=== PATIENT | female | born 1960 | race Caucasian/White ===

== ENCOUNTER 2018-08-10 05:56 | Inpatient (IN) | payer OTHER, SELFPAY ==
[2018-07-30 13:58] VITALS: BMI 29.8
[2018-08-10] VITALS (19 sets, daily range): BP systolic 93–121; BP diastolic 58–78; PULSE 68–93; RESP 10–24; TEMP 35.6–36.9; O2SAT 90–98; BMI 29.9
[2018-08-10] MEDS: LACTATED RINGERS 1,000 ML 42 ML IV ×2 (07:00→08:41)
--- NOTE | 2018-08-10 07:24 | PM.PREOP ---
Pre-operative Note Interval Note History & Physical reviewed/Exam performed by Physician: Yes Changes to H&P: No
--- NOTE | 2018-08-10 07:25 | PM.OP.1 ---
Operative Date/Time/Diagnoses Date of procedure: 08/10/18 Time of procedure: 11:03 Pre-op diagnosis: lumbar stenosis with radiculopathy lumbar spondylolisthesis Post-op diagnosis: same Procedure & Clinicians Procedure: L3-4 laminectomy L4-5 laminectomy with removal of facet cyst L4-5 TLIF (post/post innerbody fusion) with cage L4 and L5 screws Iliac crest bone graft aspirate Use of microscope Placement of an epidural catheter Same procedure as scheduled: Yes Indications: [age] year old female with intractable pain from stenosis. They had failed conservative management and requested operative intervention. Risks and benefits of surgery were discussed and appropriate consents were obtained. Surgeon: Hosea Duque Ammonium Nitrate Neutralizer: Bebe Bhatt Anesthesia Type: General Operative Notes Findings: None Closure Type: primary Specimen(s): none sent Prosthetic devices, grafts, tissues, transplants, or devices: NuVasive MAS Reline screws Globus Rise cage Applied: catheter Estimated Blood Loss (mL): 20 Blood products transfused: none Procedure in detail: The patient was brought to the operating room and intubated on the table. A time-out was performed. They were then rolled over to the well-padded Cortes table in the prone position. Preoperative antibiotics were given. The back was prepped and draped in the standard sterile fashion. Using fluoroscopy, a 4 cm longitudinal incision was made to the right of the midline. We used Bovie to come down to and split the lumbodorsal fascia. Using fluoroscopy and monitoring, we then percutaneously placed Jamshidi needles down the pedicles of L4 and L5 on the right side. These were changed out to guidewires and then we tapped and then placed the NuVasive MAS Reline screw shanks. We then opened up the retractors and used Bovie to clear up the posterolateral gutter as well as medially along the lamina to the spinous processes. A bur was used to decorticate the transverse processes. We brought in the microscope. Using a combination of bur and Kerrison rongeurs, a laminectomy was performed from the right side. We cleared over past the midline and carefully depressed the dura until we were able to decompress the opposite side. There was at a very large facet cyst extensively adhered to the dura at this level. We had to do extensive dissection and clearing this out until everything was decompressed. We cleared out the neural foramen. This completed the laminectomy at L4-5. This was separate and distinct from the TLIF approach as we were decompressing the canal and the nerves as well as having to remove the large facet cyst, not just a small approach window. We then began the TLIF prep. A complete facetectomy was performed on this side at L4-5. We carefully cleaned up the remainder of the foramen until we could easily retract the exiting root as well as clearing medially below the dura and expose the disc space. The disc was prepped with bipolar and then an annulotomy was performed. We performed a diskectomy using a combination of paddles, owen, pituitaries, and curettes. We distracted the disc using a paddle and locked the retractor in an open position. We then filled the disc space with Osteocell bone graft. We then placed the globus Rise cage under fluoroscopy and then filled this in with more bone graft. The distraction on the retractor was released to compress down. This completed the posterior interbody fusion portion of the TLIF at L4-5. We then rotated the retractor blade on the L4 screw and opened the retractor cephalad at this. We then dissected expose the L3 lamina. A laminectomy was performed from the right-hand side at L3-4 using a bur and Kerrison rongeur is. We reached across the midline with our Kerrison swell carefully depressing the dura to decompress the central canal. In the and the canal and foramen were open. We then placed the screw heads, chi, and locked down the set screws. The wound was copiously irrigated. A small stab incision was made over the PSIS. We used a Jamshidi needle to aspirate several mL of bone marrow from the pelvis. This was mixed with the remaining Osteocell and combined with all of the locally harvested bone graft and placed in the posterolateral gutter for the posterior fusion of the TLIF at L4-5. An epidural catheter was then placed in the spinal canal by carefully depressing the dura and advancing it 6 cm cephalad under the remaining lamina without resistance. The muscle fascia was closed. The catheter was then injected with a solution containing 4 mL of 0.5% Marcaine, 1 mg Stadol, 4 mg Duramorph, and 100 mcg of fentanyl. This was injected without resistance and the catheter was pulled. We then went to the opposite side. Again using fluoroscopy, a 3 cm incision was made and Bovie was used to come down to split the fascia. Using neural monitoring and fluoroscopy, Jamshidi needles were advanced down the pedicles of L4 and L5 on the left side. These were switched over guidewires, tapped, and screws placed. We then placed a chi and locked the set screws on this side. The wound was irrigated. The fascia was closed. Vancomycin powder was placed in the wounds. The superficial and skin were closed. A sterile dressing was placed. The patient was then rolled over extubated and brought to recovery room without complications. Complications: none Condition: stable Disposition: PACU Plan for aftercare: Inpatient. Up with physical therapy.
[2018-08-10] MEDS: CLINDAMYCIN 900 MG/50 ML PIGGYBACK 50 MG IV ×3 (07:45→23:41)
--- NOTE | 2018-08-10 08:25 | SUR.OPER ---
Prone on spine table, head in foam head support, padded chest and pelvic supports, gel pad at knees, lower legs supported by pillows; nipples, genitalia and toes free of pressure, arms secured on foam padded arm boards at <90 degrees abduction. Tape over blanket at thigh secured to table.
[2018-08-10] MEDS: THROMBIN (RECOMBINANT) 5,000 UNIT VIAL 5000 UNIT TOP (08:39)
[2018-08-10] MEDS: VANCOMYCIN 1,000 MG VIAL 1000 MG TOP (08:39)
[2018-08-10] MEDS: SODIUM CHLORIDE 0.9% 1,000 ML, GENTAMICIN 80 MG IRR ×2 (08:40)
--- NOTE | 2018-08-10 11:20 | DI.RAD.S_ITS ---
PROCEDURE: XR LUMBAR SPINE 2-3V INDICATIONS: L4-5 TLIF FINDINGS: 2 limited intraoperative fluoroscopically stored images of the lower lumbar spine were obtained for intraoperative hardware localization purposes. These images are not meant for diagnostic purposes. Intraoperative findings related to a lower lumbar discectomy and fusion procedure are present. IMPRESSION: Intraoperative images obtained during the patient's lower lumbar discectomy and fusion procedure. Dictated by: Dieter Herrera M.D. on 08/10/2018 at 10:49 Approved by: Dieter Herrera M.D. on 08/10/2018 at 10:50
--- NOTE | 2018-08-10 11:41 | PC.NURSE ---
Day shift: Pt not on AC unit at this time.
[2018-08-10] MEDS: HYDROMORPHONE 2 MG INJ 0.5 MG IV (11:45)
--- NOTE | 2018-08-10 12:35 | SUR.PHASEI ---
1227 To room 214. bed remains elevated w/staff agreement to lower it after caring for patient. VSS. Tolerating ice chips well. Resp unlabored, skin warm and dry. Pain 08/22, staff informed that she would like Rx. SCDs on. Clothing bag and cPAP to room and put on patient w/O2 @3LNP. Spouse present. Back dressing remains CDI w/patient positioned on her right side for comfort.
--- NOTE | 2018-08-10 12:37 | SUR.PHASEI ---
patient was moving freely w/sufficient strength to turn self.
[2018-08-10] MEDS: LACTATED RINGERS 1,000 ML 125 ML IV ×2 (12:51→22:14)
[2018-08-10] MEDS: hydrOXYzine pamoate 25 MG CAPSULE PO ×3 (12:52→23:48)
[2018-08-10] MEDS: HYDROCODONE/ACET 5/325 TABLET 2 TAB PO ×3 (12:52→23:48)
[2018-08-10] MEDS: CELECOXIB 200 MG CAPSULE 400 MG PO (12:57)
--- NOTE | 2018-08-10 13:07 | PC.NURSE ---
Day shift: Arrived on unit at approx 1245. Oriented to room and call light. Back surgery dressing is CDI. Call light in reach. Spouse at bedside for support. 4L O2 attached to CPAP. CMS ok. VS WNL. Stated pain 12/22. Medicated per AUG. Will continue to monitor and assess pain. Pt agrees to not get OOB w/o help.
--- NOTE | 2018-08-10 13:33 | PT.IPTN ---
Current Diagnoses Spondylolisthesis, lumbar region (08/10/18) Spinal stenosis, lumbar region with neurogenic claudication (08/10/18) Surgery Performed Operation Date: 08/10/18 07:45 Actual Procedures p L3-4,L4-5 Laminectomy & Instru fusion w/bone graft - Hosea Duque MD Physical Therapy Treatment Note Notes Per RN pt in a lot of pain, just got a ton of pain medication and needs to sleep. Will check back later.
--- NOTE | 2018-08-10 16:23 | PT.IIE ---
Current Diagnoses Spondylolisthesis, lumbar region (08/10/18) Spinal stenosis, lumbar region with neurogenic claudication (08/10/18) Surgery Performed Operation Date: 08/10/18 07:45 Actual Procedures p L3-4,L4-5 Laminectomy & Instru fusion w/bone graft - Hosea Duque MD Surgical History (Last Updated 07/30/18 @ 14:12 by Elisha Sandoval, RN) History of section (Acute ~1987) History of colonoscopy (Acute) Hx of tubal ligation (Acute ~1987) Medical History (Last Updated 07/30/18 @ 14:46 by Elisha Sandoval RN) Anemia (Acute) Anxiety (Acute) Arthritis (Acute) Current every day smoker (Acute) Depression (Acute) Glaucoma (Acute) Heartburn (Acute) Increased pressure in the eye (Acute) Migraines (Acute) Numbness and tingling (Acute) JULIANNE on CPAP (Acute) Precancerous lesion (Acute) Sciatica (Acute) Seasonal allergies (Acute) Spinal stenosis (Acute) Physical Therapy Inpatient Evaluation/Re-Eval M1 PT/OT-IP Prior Functional Status Start: 08/10/18 13:32 Freq: NEEDED Status: Active Protocol: Document 08/10/18 16:23 RS (Rec: 08/10/18 16:37 RS [id number]) Medical Review Prior Functional Status Medical History Reviewed Yes Diet/Fluid Consistency Regular Communication no known deficits Mobility and Gait ind without AD but very painful Activities of Daily Living and IADL's denies needing assist Prior Functional Level (Other details) has had a few falls related to legs giving out Social History Household Members spouse family Living Arrangements House Number of Floors (Floors) One Floor Number of Stairs To Enter/Railing? 2STE no rail Home Equipment Front Wheel Walker Four Wheel Walker Straight Cane Additional Social History Comment spouse can provide assist at home M2 PT-IP Current Condition Start: 08/10/18 13:32 Freq: NEEDED Status: Active Protocol: Document 08/10/18 16:23 RS (Rec: 08/10/18 16:37 RS [id number]) Physical Therapy Current Condition Current Condition Evaluation Date 08/10/18 Treatment Diagnosis L3-4 lami, L4-5 TLIF Onset Date 08/10/18 Precautions Lumbar Precautions Log Roll No Twisting Limit Bending Lifting Restriction of 10 lbs Gait Belt above Incisional Area M3 PT-IP Subjective Start: 08/10/18 13:32 Freq: NEEDED Status: Active Protocol: Document 08/10/18 16:23 RS (Rec: 08/10/18 16:37 RS [id number]) Subjective Physical Therapy Visit Type Type Initial Evaluation Visit Start Time 15:30 Visit Stop Time 16:23 Total Visit Minutes 53 Physical Therapy Visit Comments Patient Comments Pt reports no pain in BLE at all which is 100% improved since before surgery, she does feel weaker though in BLE than before surgery. Patient Goals go home tomorrow Therapy Pain Assessment Pain When Pain Assessed At Rest Pain Present Pain Present Pain Reported Location Lower Back Intensity 7 Scale Used Numeric (1 - 10) M4 PT-IP Mobility and Gait Start: 08/10/18 13:32 Freq: NEEDED Status: Active Protocol: Document 08/10/18 16:23 RS (Rec: 08/10/18 16:37 RS [id number]) PT-Bed Mobility Assessment Rolling Type of Rolling Log Rolling Roll to Right Level of Assist Standby Assistance 1 Person Assistance Supine to Sit Supine to Sit Contact Guard Assistance 1 Person Assistance Sit to Supine Sit to Supine Contact Guard Assistance 1 Person Assistance Scooting Scooting to Edge of Bed Standby Assistance PT-Transfer Assessment Sit to and From Stand Sit to and from Stand Contact Guard Assistance 1 Person Assistance Equipment Transfer Assistive Device Gait Belt Front Wheeled Walker Transfers Transfer Destination Bed Transfer Technique walked and turned to sit Transfer Ability Level of Assist Contact Guard Assistance 1 Person Assistance Comments Mobility Comments Pt able to perform log roll without additional cues, did get a little dizzy once sitting but no orthostatic drop. No increase in pain. Slow with scooting to EOB and then to stand up but steady. Pt reports feeling off balance but no LOB observed when using FWW. Able to control descent to sit back down safely. Gait Assessment Gait Gait Assistance Required: Contact Guard Assist Distance (Feet) 15 Assistive Devices Assistive Device Gait Belt Front Wheeled Walker Gait Deviations General Gait Pattern Antalgic Decreased Stride Length Factors Limiting Gait Function Factors Limiting Gait Function Decreased Strength Pain Comments Gait Comments Pt slow with walking but steady with only slight reduction in step length. Defitintely needs a walk right now though for stability and pain management. Stair Climbing Assessment Comments Stair Climbing Comments not tested PT-Balance Assessment Sitting Balance and Reactions Static Sitting Balance Ability Normal Dynamic Sitting Balance Ability Good Standing Balance and Reactions Static Standing Balance Ability Good Dynamic Standing Balance Ability Good Device Used FWW M5 PT-IP Objective Assessments Start: 08/10/18 13:32 Freq: NEEDED Status: Active Protocol: Document 08/10/18 16:23 RS (Rec: 08/10/18 16:37 [id number]) Orientation Orientation/Cognition Level of Alertness Alert Orientation Name Age Birthday Month Date Year Day of Week Place Situation Language Function Ability No Deficits Noted Safety Awareness Understands Safety Issues Memory Description No Deficits Noted Gross Range of Motion Upper Extremity ROM Assessment Within Functional Limits Lower Extremity ROM Assessment Within Functional Limits Strength Upper Extremity Strength Assessment Within Functional Limits Lower Extremity Strength Assessment Bilaterally Impaired Comments Strength Comments grossly 4/5 but nothing focal Coordination Assessment Gross Coordination Gross Coordination WNL M6 PT-IP Treatment Start: 08/10/18 13:32 Freq: NEEDED Status: Active Protocol: Document 08/10/18 16:23 RS (Rec: 08/10/18 16:37 [id number]) Physical Therapy Treatment Education Education Provided Precautions Post-Op Packet Safety M7 PT-IP Assessment and Plan Start: 08/10/18 13:32 Freq: NEEDED Status: Active Protocol: Document 08/10/18 16:23 RS (Rec: 08/10/18 16:37 [id number]) PT Summary Assessment and Plan Potential Rehabilitation Potential Excellent Status of Condition at Evaluation Evolving Summary Impairments Pain Strength Balance Transfers Gait Activity Tolerance Assessment Summary Pt is POD#0 L3-4 lami w/ L4-5 TLIF. Pt presents with low back pain and gross weakness which is requiring the patient to have up to CGA with FWW for mobility at this time. Pt also limited by moderate wooziness in sitting and standing which prevented patient from walking further this session. However, pt demonstrates compliance with spinal precautions thus far. It is anticipated that pt will be safe to discharge directly home tomorrow (or when medically ready) with assist from . Pt will need 1-2 more sessions (with present) for family training, stair trial, and gait progression prior to discharge . Pt in agreement with this plan. Goals Bed Mobility Goal Standby Assistance Transfer Goal Standby Assistance Gait Goal Standby Assistance Gait Distance 150 Other Goals no AD up/down 2 steps with min A and no rail Days to Meet Goals 2 Frequency of Treatment Frequency Of Treatment Twice a Day Treatment Plan Physical Therapy Treatment Plan Bed Mobility Training Transfer Training Gait Training Therapeutic Exercise Balance Retraining Post Op Education Discharge Planning Hot or Cold Pack Neuromuscular Re-ed Coordination Retraining Manual Therapy Other Recommendations and Next Treatment family training with , Focus stairs, trial gait without AD Recommendations To Nursing Amount of Assist Needed 1 Person Assist Discharge Recommendations PT Discharge Recommendations Home with Assistance Equipment Needed for Home Before might need FWW but can borrow Discharge one
[2018-08-10] MEDS: BIMATOPROST 0.01% OPHTH 2.5 ML 1 DROPS EYE-BOTH (22:07)
[2018-08-10] MEDS: DOCUSATE 100 MG CAPSULE PO (22:11)
[2018-08-10] MEDS: CELECOXIB 200 MG CAPSULE PO (22:11)
[2018-08-10] MEDS: GABAPENTIN 300 MG CAPSULE PO (22:12)
[2018-08-10] MEDS: SENNOSIDES 8.6 MG TABLET 17.2 MG PO (22:12)
[2018-08-11 05:42] VITALS: BP 105/77; PULSE 86; RESP 18; TEMP 36.6; O2SAT 92
[2018-08-11] MEDS: hydrOXYzine pamoate 25 MG CAPSULE PO ×2 (05:56→11:48)
[2018-08-11] MEDS: HYDROCODONE/ACET 5/325 TABLET 2 TAB PO (05:56)
[2018-08-11 06:03] LABS: Hematocrit 29.9 % (36-46); Hemoglobin 10.1 g/dL (12.0-16.0)
--- NOTE | 2018-08-11 07:36 | PM.PNPO.1 ---
Subjective Date Patient Seen: 08/11/18 Time Patient Seen: 07:36 Interval history: She is doing great. She has been up with physical therapy and moving well. Absolutely no leg symptoms. Minimal discomfort in the back. Exam Vital Signs (past 8 hours): - 08/10/18 23:50 08/11/18 05:42 Temperature 98.2 F 97.9 F Pulse Rate 86 86 Respiratory Rate 18 18 Blood Pressure 93/63 105/77 Pulse Oximetry 93 92 Oxygen Delivery Method CPAP Oxygen Flow Rate 0 Const Orientation: alert and oriented x3 Back/Spine/Pelvis Other: CDI. 5/5 motor both lower extremities Objective Labs Result Diagrams: 08/11/18 05:49 Labs: Laboratory Results - last 24 hr 08/11/18 05:49 Hgb 10.1 L Hct 29.9 L Assessment & Plan Post-op Postoperative Procedures Operation Date: 08/10/18 07:45 Actual Procedures Side Surgeon p L3-4,L4-5 Laminectomy & Instru fusion w/bone graft Hosea Duque MD she is doing great. Removed the Ward catheter today. Mobilize with physical therapy. If she is doing well and passes physical therapy she can be discharged home today. Quality VTE Deep Vein Thrombosis/Pulmonary Embolism Present on Admission: No
[2018-08-11] MEDS: DOCUSATE 100 MG CAPSULE PO (07:55)
[2018-08-11] MEDS: CELECOXIB 200 MG CAPSULE PO (07:55)
[2018-08-11 08:02] VITALS: BP 101/57; PULSE 78; RESP 16; TEMP 36.8; O2SAT 94
--- NOTE | 2018-08-11 10:36 | PT.IPTN ---
Current Diagnoses Spondylolisthesis, lumbar region (08/10/18) Spinal stenosis, lumbar region with neurogenic claudication (08/10/18) Surgery Performed Operation Date: 08/10/18 07:45 Actual Procedures p L3-4,L4-5 Laminectomy & Instru fusion w/bone graft - Hosea Duque MD Physical Therapy Treatment Note M2 PT-IP Current Condition Start: 08/10/18 13:32 Freq: NEEDED Status: Active Protocol: Document 08/10/18 16:23 RS (Rec: 08/10/18 16:37 RS [id number]) Physical Therapy Current Condition Current Condition Evaluation Date 08/10/18 Treatment Diagnosis L3-4 lami, L4-5 TLIF Onset Date 08/10/18 Precautions Lumbar Precautions Log Roll No Twisting Limit Bending Lifting Restriction of 10 lbs Gait Belt above Incisional Area M3 PT-IP Subjective Start: 08/10/18 13:32 Freq: NEEDED Status: Active Protocol: Document 08/11/18 10:17 SA (Rec: 08/11/18 10:35 SA [id number]) Subjective Physical Therapy Visit Type Type Treatment Note Visit Start Time 09:48 Visit Stop Time 10:12 Total Visit Minutes 24 Notes Pt sitting up at EOB, ready for PT and hoping to d/c today . Number of POISON INFORMATION SPECIALIST Visits 1 Physical Therapy Visit Comments Patient Comments Pt reports feeling really good with no LE pain. Has been up to bathroom this morning. Patient Goals To d/c home with today . Therapy Pain Assessment Pain When Pain Assessed During Mobility Pain Present Pain Present Denied Pain M4 PT-IP Mobility and Gait Start: 08/10/18 13:32 Freq: NEEDED Status: Active Protocol: Document 08/11/18 10:17 SA (Rec: 08/11/18 10:35 SA [id number]) PT-Bed Mobility Assessment Rolling Type of Rolling Log Rolling Roll to Right Level of Assist Standby Assistance Supine to Sit Supine to Sit Standby Assistance Sit to Supine Sit to Supine Standby Assistance Scooting Scooting to Edge of Bed Standby Assistance Scooting Up and Down in Bed Standby Assistance PT-Transfer Assessment Sit to and From Stand Sit to and from Stand Standby Assistance 1 Person Assistance Equipment Transfer Assistive Device Gait Belt Front Wheeled Walker Orthotic/Prosthetic Devices or Brace: No Transfers Transfer Destination Chair Transfer Technique Stand Step Pivot Transfer Ability Level of Assist Standby Assistance Comments Mobility Comments Pt had no c/o dizziness today with mobility. Able to recite 3/3 spinal precautions and did not need VCs for safe performing safe log roll technique. Safe use of FWW with transfers. Gait Assessment Gait Gait Assistance Required: Standby Assistance Contact Guard Assist Distance (Feet) 200 Assistive Devices Assistive Device Gait Belt Front Wheeled Walker Orthotic/Prosthetic Devices or Brace: No Gait Deviations General Gait Pattern Decreased Stride Length Factors Limiting Gait Function Factors Limiting Gait Function Decreased Strength Comments Gait Comments Pt with improved distance and quality of gait, denies any LE pain with ambulation. Manages FWW safely, without cues. Stair Climbing Assessment Evaluation Level of Assist On Stairs Contact Guard Assistance Devices Stair Climbing Assistive Devices Right Railing Technique/Endurance Stair Climbing Direction Ascend and Descend Stair Climbing Technique Step to Step Number of Steps Climbed 3 Query Text: Stair Climbing Set # Repetitions (reps) 1 Comments Stair Climbing Comments Pt did well on stairs with SBA -CGA and min cues for safe technique. Step to gait with single rail and no LOB or c/o dizziness. PT-Balance Assessment Sitting Balance and Reactions Static Sitting Balance Ability Normal Dynamic Sitting Balance Ability Good M5 PT-IP Objective Assessments Start: 08/10/18 13:32 Freq: NEEDED Status: Active Protocol: Document 08/10/18 16:23 RS (Rec: 08/10/18 16:37 RS [id number]) Orientation Orientation/Cognition Level of Alertness Alert Orientation Name Age Birthday Month Date Year Day of Week Place Situation Language Function Ability No Deficits Noted Safety Awareness Understands Safety Issues Memory Description No Deficits Noted Gross Range of Motion Upper Extremity ROM Assessment Within Functional Limits Lower Extremity ROM Assessment Within Functional Limits Strength Upper Extremity Strength Assessment Within Functional Limits Lower Extremity Strength Assessment Bilaterally Impaired Comments Strength Comments grossly 4/5 but nothing focal Coordination Assessment Gross Coordination Gross Coordination WNL M6 PT-IP Treatment Start: 08/10/18 13:32 Freq: NEEDED Status: Active Protocol: Document 08/11/18 10:17 (Rec: 08/11/18 10:35 SA [id number]) Physical Therapy Treatment Exercises Exercises Ankle Pumps Gluteal Sets Education Education Provided Precautions Post-Op Packet Safety Other Treatments Other Treatment Performed Pt has personal FWW. M7 PT-IP Assessment and Plan Start: 08/10/18 13:32 Freq: NEEDED Status: Active Protocol: Document 08/11/18 10:17 SA (Rec: 08/11/18 10:35 SA [id number]) PT Summary Assessment and Plan Potential Rehabilitation Potential Excellent Status of Condition at Evaluation Evolving Summary Impairments Pain Strength Balance Transfers Gait Activity Tolerance Assessment Summary Pt SBA-CGA with all mobilites including stairs, has at home to assist and all needed equitment. Demonstrates safe mobility with FWW and denied LE pain today. Frequency of Treatment Frequency Of Treatment Twice a Day Treatment Plan Physical Therapy Treatment Plan Bed Mobility Training Transfer Training Gait Training Therapeutic Exercise Balance Retraining Post Op Education Discharge Planning Hot or Cold Pack Neuromuscular Re-ed Coordination Retraining Manual Therapy Recommendations To Nursing Amount of Assist Needed 1 Person Assist Discharge Recommendations PT Discharge Recommendations Home with Assistance
--- NOTE | 2018-08-11 10:45 | OT.IP.EVAL ---
Current Diagnoses Spondylolisthesis, lumbar region (08/10/18) Spinal stenosis, lumbar region with neurogenic claudication (08/10/18) Surgery Performed Operation Date: 08/10/18 07:45 Actual Procedures p L3-4,L4-5 Laminectomy & Instru fusion w/bone graft - Hosea Duque MD Past Medical History (Last Updated 07/30/18 @ 14:46 by Elisha Sandoval, RN) Anemia (Acute) Anxiety (Acute) Arthritis (Acute) Current every day smoker (Acute) Depression (Acute) Glaucoma (Acute) Heartburn (Acute) Increased pressure in the eye (Acute) Migraines (Acute) Numbness and tingling (Acute) JULIANNE on CPAP (Acute) Precancerous lesion (Acute) Sciatica (Acute) Seasonal allergies (Acute) Spinal stenosis (Acute) Surgical History (Last Updated 07/30/18 @ 14:12 by Elisha Sandoval RN) History of section (Acute ~1987) History of colonoscopy (Acute) Hx of tubal ligation (Acute ~1987) Occupational Therapy Inpatient Evaluation/Re-Eval M1 PT/OT-IP Prior Functional Status Start: 08/10/18 13:32 Freq: NEEDED Status: Active Protocol: Document 08/10/18 16:23 RS (Rec: 08/10/18 16:37 RS [id number]) Medical Review Prior Functional Status Medical History Reviewed Yes Diet/Fluid Consistency Regular Communication no known deficits Mobility and Gait ind without AD but very painful Activities of Daily Living and IADL's denies needing assist Prior Functional Level (Other details) has had a few falls related to legs giving out Social History Household Members spouse family Living Arrangements House Number of Floors (Floors) One Floor Number of Stairs To Enter/Railing? 2STE no rail Home Equipment Front Wheel Walker Four Wheel Walker Straight Cane Additional Social History Comment spouse can provide assist at home M1 PT/OT-IP Prior Functional Status Start: 08/11/18 10:33 Freq: NEEDED Status: Active Protocol: Document 08/11/18 10:36 CCC (Rec: 08/11/18 10:45 [facility] [id number]) Medical Review Prior Functional Status Medical History Reviewed Yes Diet/Fluid Consistency Regular Communication no known deficits Mobility and Gait ind without AD but very painful Activities of Daily Living and IADL's denies needing assist Prior Functional Level (Other details) has had a few falls related to legs giving out Social History Household Members spouse family Living Arrangements House Number of Floors (Floors) One Floor Number of Stairs To Enter/Railing? 2STE no rail Home Equipment Front Wheel Walker Four Wheel Walker Straight Cane Additional Social History Comment spouse can provide assist at home M2 OT-IP Current Condition Start: 08/11/18 10:33 Freq: Status: Active Protocol: Document 08/11/18 10:36 [facility] (Rec: 08/11/18 10:45 [facility] [id number]) Occupational Therapy Current Condition Current Condition Evaluation Date 08/11/18 Treatment Diagnosis Spinal stenosis Diagnosis Onset Date 08/10/18 Post Operative Precautions Lumbar Precautions Log Roll No Twisting Limit Bending Lifting Restriction of 10 lbs Gait Belt above Incisional Area M3 OT- IP Subjective and Pain Start: 08/11/18 10:33 Freq: Status: Active Protocol: Document 08/11/18 10:36 [facility] (Rec: 08/11/18 10:45 [facility] [id number]) OT- Subjective Occupational Therapy Visit Type Type Initial Evaluation Visit Start Time 10:20 Visit Stop Time 10:35 Occupational Therapy Visit Comments Patient Comments Pt ready to go home. OT Pain Assessment Pain When Pain Assessed At Rest Pain Present Pain Present Denied Pain M4 OT- IP ADL's Start: 08/11/18 10:33 Freq: Status: Active Protocol: Document 08/11/18 10:36 [facility] (Rec: 08/11/18 10:45 [facility] [id number]) OT ADL-Dressing General Eval Upper Body Dressing Ability Independent Lower Body Dressing Ability Minimal Assistance Areas Needing Assistance Shoes Comments OT Dressing Comments Assist to tie shoes and get heel into the back of the shoe . Pt able to comfortably cross her legs to put on brief ,pants and socks. Suggested for toileting to stand and wipe, use of toilet aid may also be helpful. In addition may want to have pads at night so not having to dinero to the bathroom at night. M6 OT- IP Functional Cognition Start: 08/11/18 10:33 Freq: Status: Active Protocol: Document 08/11/18 10:36 [facility] (Rec: 08/11/18 10:45 [facility] [id number]) Cognitive Factors Limiting Selfcare Function Cognitive Ability Level of Alertness Alert Patient Orientation Name Place Situation Attention Span Ability Capable of Focused Attention Capable of Sustained Attention Ability to Follow Commands Able to Follow Multi-Step Commands Memory Description No Deficits Noted Safety Awareness Decreased Ability to Apply Precautions Underestimates Need for Assistance Problem Solving Ability No deficits Noted Cognitive Comments Cognitive Assessment Comments Pt needing occasional vc to follow back precautions as pt tends to be a bit impulsive. OT- Vision and Hearing OT- Hearing Assessment OT- Hearing Assessment WFL M7 OT- IP Mobility and Balance Start: 08/11/18 10:33 Freq: Status: Active Protocol: Document 08/11/18 10:36 [id number]-Transfer Assessment Sit to and From Stand Sit to and from Stand Standby Assistance Transfers Transfer Ability Standby Assistance OT- Balance Assessment Sitting Balance and Reactions Static Sitting Balance Ability Normal Dynamic Sitting Balance Ability Normal Standing Balance and Reactions Static Standing Balance Ability Good M8 OT- IP Objective Assessments Start: 08/11/18 10:33 Freq: Status: Active Protocol: Document 08/11/18 10:36 [facility] (Rec: 08/11/18 10:45 [id number] OT Gross Range of Motion Upper Extremity Range of Motion Assessment Within Functional Limits M9 OT- IP Assessment and Plan Start: 08/11/18 10:33 Freq: Status: Active Protocol: Document 08/11/18 10:36 [facility] (Rec: 08/11/18 10:45 [id number] OT Summary Assessment and Plan Potential Rehabilitation Potential Good Analytic Complexity at Evaluation Low Summary OT Impairments Functional Cognition Progress Towards Goals Progressing Toward Goals Assessment Summary Pt low complexity and has good family support at home and good understanding of back precautions and needs. Pt tends to be a bit impulsive and encouraged her to slow down and not be afraid to ask for help.. Goals Patient/Caregiver Education Goal Demonstrate Post-Op Precautions Caregiver Independent Assisting Patient Days to Meet Goals 1 Frequency of Treatment Frequency Of Treatment Once a Day Treatment Plan OT Treatment Plan Patient/Family Education Discharge Planning Discharge Recommendations OT Discharge Recommendations Home with Assistance Home Equipment Needs Toilet aid.
--- NOTE | 2018-08-11 11:04 | CM.DANOTE ---
DCP/continued: Reviewed chart. Patient is a 57yr old female admitted [facility] surgery performed on 08-10-[address] Duque. Primary payor is 1)Younger. PCP listed is Dr. Zach Miller. Met with patient and spouse at bedside explained CM/SW role. Patient reports that she hopes to go home today after therapy. Spouse at bedside and confirms plan. Patient reports that she has all needed DME in the home. Patient ambulating in room I. P: Home after cleared by therapy. PROVIDER NETWORK MANAGER made therapy aware of above. DONAVON Morel Discharge Planning/Care Management CM Discharge Assessment Start: 08/11/18 11:00 Freq: Status: Active Protocol: Document 08/11/18 11:01 KJS (Rec: 08/11/18 11:04 KJ [id number]) Discharge Planning Assessment Assigned Digital Media Coordinator DONAVON Morel Contact Information [facility] [phone] Advance Directives? No: Declines further information History Provided By Patient Has Patient been admitted in last 30 No days? Prior Living Arrangements House Household Members spouse family Type of transporation used prior to Drives own vehicle admit Independent with ADL's Yes Is patient alert and oriented? Yes Caregiver for Another No DME Already Rented / Owned FWW / Walker Comment CPAP at night for sleep. Barriers to Discharge No Discharge Plan Home Transportation Arrangement Spouse to provide transportation. Referrals Initiated None needed Whiteboard Updated in Patient Room with Yes name and ext. # of Digital Media Coordinator Review Status In Process Please Provide Date Initial DC 08/11/18 Assessment Was Performed Next Review Type Continued Stay Review Pre-Anesthesia Assessment Start: 07/30/18 13:58 Freq: Status: Complete Protocol: Document 07/30/18 13:58 CAB (Rec: 07/30/18 14:39 CAB [id number]) Pre-Anesthesia Assessment Patient Information Reviewed Via Phone Assessment Assessment Completed With Patient Primary Care Provider Zach Miller Seen Specialist in Last 12 Months Yes Specialist Seen Orthopedist Primary Language Vietnamese Height 162.56 cm Weight 78.925 kg Body Mass Index (BMI) 29.8 Hearing Ability Normal Visual Assist Glasses Dentition Type Teeth, Natural Present Teeth, Missing Barriers to Learning None Other Aids Yes: CPAP Hx Anesthesia Reactions No Hx Family Anesthesia Reaction No: Pt adopted, family history unkown Hx Malignant Hyperthermia No: Pt adopted, family history unkown Hx Blood Transfusions No Anesthesia Review Requested No Flaker Tender No alcohol intake current alcohol intake frequency 0-2 drinks per day Smoking Status Current every day smoker Tobacco type cigarettes Smoking packs per day 0.75 Substance Use Type does not use Pain Present Pain Reported Musculoskeletal Symptoms Abnormal Gait Back Pain Difficulty Walking Joint Pain Muscle Weakness Numbness Radiating Pain into Limb Tingling History of Falling (Recent or History of Yes ) Patient is completely paralyzed or No completely immobile Mental Status Oriented to own ability Is patient on oxygen? No Does patient have HDEZ/SOB No Hx Sleep Apnea Yes CPAP/BIPAP use prescribed and used routinely Currently Taking a Beta [place] No Can You Climb a Flight of Stairs Without Yes SOB Hx Chest Pain No Hx SOB No Hx Syncope or Dizziness No Anti-Coagulant Therapy No Has a Camera Repairer No Cardiac Testing No Hx Pacemaker/ICD No Pacemaker Rep Required? No Cardiac Clearance Received Not Applicable Diet Type At Home Regular dysphagia No Urinary Catheter Present No Hx Urinary Self Catheterization No Diabetes No Patient No Lactating No Hx Drug Resistant Organism No Presence of External or Internal Medical Yes: CPAP Devices Have you traveled outside the [facility] in the last 30 days? Marital Status Lives With spouse family Prior Living Arrangements House Number of Floors (Floors) One Floor Number of Stairs To Enter/Railing? 2 steps, no railings Support System Child/Children Parent(s) Spouse Does the Patient Have Assistance After Yes Surgery Patient Discharge Plan Description Return Home Comment Pt advised 2 day length of stay per surgeon's office Feels Safe in Current Environment Yes Been Physically Hurt or Threatened By a No Person in Current Environment Do you have thoughts of harming yourself None or others? Are you currently considering suicide? No Do you have a plan to hurt yourself or No Plan others? Do You Have Any Spiritual Beliefs That No May Affect Your HC Choices? Do You Have Any Cultural Practices That No May Affect Your HC Choices? Spiritual Referral None Comment Advent Who Can We Speak to About Patient's Care and [id number] only Identifying Code for Release of Patient Charlette Information Health Care Proxy/Next of Kin Deep () Health Care Proxy Emergency Contact Name Deep () Emergency Contact Advance Directives? No: Declines further information Power of Biology Internship No PAC Instructions Bring CPAP/BIPAP Durable medical equipment Medications to take/avoid Nasal antibiotic No ETOH/petroleum product on skin DOS NPO Post-op transportation Pre-surgical wash Sturdy shoes/comfortable clothes Do not bring valuables and remove jewelry
[2018-08-11 11:29] VITALS: BP 92/60; PULSE 74; RESP 14; TEMP 37.1; O2SAT 95
[2018-08-11] MEDS: HYDROCODONE/ACET 5/325 TABLET 1 TAB PO (11:47)
== END 2018-08-11 13:26 | disposition home or self-care (01) | DRG 455 ==
PROVIDERS: Admitting Provider Orthopaedic Surgery; Family Provider Family Medicine; PCP Physician Assistant Medical; Visit Provider Orthopaedic Surgery
PROC: 0SG00AJ Fusion of Lumbar Vertebral Joint with Interbody Fusion Device, Posterior Approach, Anterior Column, Open Approach (ICD-10-PCS; principal; 2018-08-10 07:45)
DX: M48.062 Spinal stenosis, lumbar region with neurogenic claudication (principal); M43.16 Spondylolisthesis, lumbar region; G47.33 Obstructive sleep apnea (adult) (pediatric); F32.9 Major depressive disorder, single episode, unspecified; F17.210 Nicotine dependence, cigarettes, uncomplicated
CPT/HCPCS: 36415; 72100; 76000; 85014; 85018; 94760; 94762; 97116; 97161; 97165; 97530; C1776; C1788; J0330; J1100; J1170; J2405; J2704; J3010

== ENCOUNTER → 2020-05-22 13:14 | Outpatient (CLI) | payer OTHER, SELFPAY ==
[2019-09-01 15:20] VITALS: BMI 29.9
[2020-05-22 13:49] LABS: COVID19 -Nasal RAPID Negative (Negative)
== END ==
PROVIDERS: Family Provider Family Medicine; PCP Family Medicine; Visit Provider Physician Assistant
DX: Z11.59 Encounter for screening for other viral diseases (principal)
CPT/HCPCS: 87635

== ENCOUNTER → 2021-06-17 12:19 | Outpatient (CLI) | payer OTHER, SELFPAY ==
[2019-09-01 15:20] VITALS: BMI 29.9
[2021-06-17 12:54] LABS: Add Manual Diff / Slide Review NO; Basophils Absolute Auto 0 /uL (0-100); Basophils Percent Auto 0.8 % (0-2); Eosinophils Absolute Auto 300 /uL (0-450); Eosinophils Percent Auto 4.8 % (2-4); Hematocrit 37.9 % (36-46); Hemoglobin 13.1 g/dL (12.0-16.0); Lymphocytes Absolute Auto 1800 /uL (1100-4500); Lymphocytes Percent Auto 31.3 % (25-40); Mean Corpuscular HGB Conc 34.5 % (30-36); Mean Corpuscular Hemoglobin 31.4 PG (26-34); Mean Corpuscular Volume 91.1 fL (80-100); Monocytes Absolute Auto 400 /uL (0-900); Monocytes Percent Auto 7.3 % (3-14); Neutrophils Absolute Auto 3200 /uL (1500-7000); Neutrophils Percent Auto 55.8 % (50-75); Platelet Count 327 X10^3/uL (150-400); Red Blood Cell Count 4.16 X10^6/uL (4.0-5.2); Red Cell Distribution Width 13.6 % (11.6-14.8); White Blood Cell Count 5.8 X10^3/uL (4.5-11.0)
[2021-06-17 13:13] LABS: BUN Creatinine Ratio 12.6 (6-22); Blood Urea Nitrogen 13 mg/dL (7-17); Calcium 9.9 mg/dL (8.4-10.2); Carbon Dioxide 29 mmol/L (22-32); Chloride 106 mmol/L (98-107); Cholesterol 243 mg/dL (140-199); Estimated Glomerular Filt Rate 54.7 mL/min (>60); Glucose 95 mg/dL (80-110); HDL Cholesterol 41 mg/dL (40-60); HEMOLYSIS < 15 (0-50); LDL Cholesterol Calculated 152 mg/dL (<100); Potassium 4.2 mmol/L (3.4-5.1); Sodium 139 mmol/L (137-145); Triglycerides 251 mg/dL (35-150)
[2021-06-17 13:45] LABS: TSH w/ Reflex to FT4 1.75 uIU/mL (0.47-4.68)
[2021-06-17 14:04] LABS: Vitamin B12 242 pg/mL (239-931)
[2021-06-17 15:24] LABS: Vitamin D 25 Hydroxy (D3) 30.7 ng/mL (30.0-100.0)
== END ==
PROVIDERS: Family Provider Family Medicine; PCP Student in an Organized Health Care Education/Training Program; Referring Provider Student in an Organized Health Care Education/Training Program; Visit Provider Student in an Organized Health Care Education/Training Program
DX: F41.8 Other specified anxiety disorders (principal); E55.9 Vitamin D deficiency, unspecified; Z79.899 Other long term (current) drug therapy; Z13.220 Encounter for screening for lipoid disorders
CPT/HCPCS: 36415; 80048; 80061; 82306; 82607; 84443; 85025

== ENCOUNTER → 2021-08-05 13:19 | Outpatient (CLI) | payer OTHER, SELFPAY ==
[2019-09-01 15:20] VITALS: BMI 29.9
--- NOTE | 2021-08-05 13:19 | DI.MG.S_ITS ---
BILATERAL DIGITAL SCREENING MAMMOGRAM 3D/2D WITH CAD: 08/05/2021 CLINICAL: Routine screening. Comparison is made to exams dated: 07/16/2018 mammogram and 09/30/2017 mammogram - [facility]. The tissue of both breasts is heterogeneously dense. This may lower the sensitivity of mammography. Current study was also evaluated with a Computer Aided Detection (CAD) system. No significant masses, calcifications, or other findings are seen in either breast. There has been no significant interval change. IMPRESSION: NEGATIVE There is no mammographic evidence of malignancy. A 1 year screening mammogram is recommended. This exam was interpreted at Station ID: [id number]. NOTE: For mammograms, a report in lay terms will be sent to the patient. Approximately 15% of breast malignancies will not be visualized mammographically. In the management of a palpable breast mass, a negative mammogram must not discourage biopsy of a clinically suspicious lesion. Electronically Signed By: Zaki Hahn M.D. at/oz:08/06/2021 09:19:19 letter sent: Normal Exam ACR BI-RADS Category 1: Negative 3341F
== END ==
PROVIDERS: Family Provider Family Medicine; PCP Student in an Organized Health Care Education/Training Program; Referring Provider Student in an Organized Health Care Education/Training Program; Visit Provider Student in an Organized Health Care Education/Training Program
DX: Z12.31 Encounter for screening mammogram for malignant neoplasm of breast (principal)
CPT/HCPCS: 77063; 77067

== ENCOUNTER → 2021-12-06 09:20 | Outpatient (CLI) | payer OTHER, SELFPAY ==
[2019-09-01 15:20] VITALS: BMI 29.9
[2021-12-10 16:09] LABS: Fecal Immunochemical Test Negative (Negative)
== END ==
PROVIDERS: Family Provider Family Medicine; PCP Student in an Organized Health Care Education/Training Program; Referring Provider Student in an Organized Health Care Education/Training Program; Visit Provider Student in an Organized Health Care Education/Training Program
DX: Z12.11 Encounter for screening for malignant neoplasm of colon (principal)
CPT/HCPCS: 82274

== ENCOUNTER → 2022-06-30 09:36 | Outpatient (CLI) | payer OTHER, SELFPAY ==
[2019-09-01 15:20] VITALS: BMI 29.9
--- NOTE | 2022-06-30 | DI.MG.S_ITS ---
BILATERAL DIGITAL SCREENING MAMMOGRAM 3D/2D WITH CAD: 06/30/2022 CLINICAL: Routine screening. Comparison is made to exams dated: 08/05/2021 mammogram - [facility], 07/16/2018 mammogram, and 09/30/2017 mammogram - [facility]. Both breasts are heterogeneously dense, which may obscure small masses (category c / 51-75% glandular tissue). Current study was also evaluated with a Computer Aided Detection (CAD) system. No significant masses, calcifications, or other findings are seen in either breast. There has been no significant interval change. IMPRESSION: NEGATIVE There is no mammographic evidence of malignancy. A 1 year screening mammogram is recommended. Based on the Tyrer Cuzick model (a risk assessment model) the patient's lifetime risk is 9.9% and her 10 year risk is 4.1%. According to the ACR, ACS, and NCCN guidelines, an annual breast MRI exam along with mammogram is recommended if the patient's lifetime risk is 20% or greater. This exam was interpreted at Station ID: [id number]. NOTE: For mammograms, a report in lay terms will be sent to the patient. Approximately 15% of breast malignancies will not be visualized mammographically. In the management of a palpable breast mass, a negative mammogram must not discourage biopsy of a clinically suspicious lesion. Electronically Signed By: Zaki bonilla/oz:06/30/2022 17:42:09 letter sent: Normal Exam ACR BI-RADS Category 1: Negative 3341F
== END ==
PROVIDERS: Family Provider Family Medicine; PCP Student in an Organized Health Care Education/Training Program; Referring Provider Student in an Organized Health Care Education/Training Program; Visit Provider Student in an Organized Health Care Education/Training Program
DX: Z12.31 Encounter for screening mammogram for malignant neoplasm of breast (principal)
CPT/HCPCS: 77063; 77067

== ENCOUNTER → 2023-01-12 06:27 | Outpatient (CLI) | payer OTHER, SELFPAY ==
[2019-09-01 15:20] VITALS: BMI 29.9
--- NOTE | 2023-01-12 06:30 | DI.US.S_ITS ---
PROCEDURE: US ABDOMEN LIMITED INDICATIONS: UMBILICAL LUMP TECHNIQUE: Real-time focused scanning was performed of the abdomen, with image documentation. COMPARISON: None. FINDINGS: Complex focus appearing to be predominantly fat measuring 15 x 9 x 11 mm herniating through a 10 mm rectus diastasis. It is not reducible during exam time. IMPRESSION: Fat containing umbilical hernia. No visualized bowel. Dictated by: Leda Naylor M.D. on 01/12/2023 at 8:58 Approved by: Leda Naylor M.D. on 01/12/2023 at 8:59
== END ==
PROVIDERS: Family Provider Family Medicine; PCP Student in an Organized Health Care Education/Training Program; Referring Provider Student in an Organized Health Care Education/Training Program; Visit Provider Student in an Organized Health Care Education/Training Program
DX: K42.9 Umbilical hernia without obstruction or gangrene (principal); R10.33 Periumbilical pain
CPT/HCPCS: 76705

== ENCOUNTER 2023-01-27 13:48 | Day surgery (SDC) | payer OTHER, SELFPAY ==
[2019-09-01 15:20] VITALS: BMI 29.9
[2023-01-20 14:41] VITALS: BMI 34.4
[2023-01-27] VITALS (7 sets, daily range): BP systolic 111–144; BP diastolic 65–77; PULSE 91–107; RESP 13–20; TEMP 36.1–36.4; O2SAT 90–95; BMI 34.4
--- NOTE | 2023-01-27 14:14 | PM.PREOP ---
Pre-operative Note Interval Note History & Physical reviewed/Exam performed by Physician: Yes Changes to H&P: No
[2023-01-27] MEDS: LACTATED RINGERS 1,000 ML 84 ML IV (14:23)
[2023-01-27] MEDS: SCOPOLAMINE 1 PATCH TOP (15:00)
[2023-01-27] MEDS: CEFAZOLIN 2 GM/100 ML PREMIX 100 ML IV (15:04)
--- NOTE | 2023-01-27 15:28 | SUR.OPER ---
Supine on padded OR bed, head on pillow, arms secured on padded arm boards at <90 degrees abduction, legs uncrossed, safety belt at thigh, tape over blanket over lower legs.
[2023-01-27] MEDS: BUPIVACAINE 0.5% (PF) 30 ML, EPINEPHrine 0.15 MG INJ (15:32)
--- NOTE | 2023-01-27 16:00 | P.OP_ITS ---
Operative Date/Time/Diagnoses Date of procedure: 01/27/23 Time of procedure: 16:01 Pre-op diagnosis: Umbilical hernia symptomatic Post-op diagnosis: same Procedure & Clinicians Procedure: Umbilical hernia repair Same procedure as scheduled: Yes Indications: Symptomatic umbilical hernia Surgeon: Zo Da Silva Manager Transportation: Oneil Magallanes Anesthesia Type: General Operative Notes Findings: 3 cm defect repaired with a medium-sized Ventralex mesh Specimen(s): none sent Procedure in detail: Patient was taken to the operating room placed supine on the operating room table. Preoperative antibiotics were administered bilateral SCDs were in place and general endotracheal anesthesia was induced. Time-out was performed. The abdomen was prepped and draped in the usual sterile fashion. Local anesthesia was infused below the umbilicus and 10. Blade scalpel was used to incise in a curvilinear incision along the lines of skin and carried down through the subcutaneous tissue using electrocautery. The hernia sac was then dissected free. The sac was entered inadvertently during the process of freeing it from the umbilical skin and stalk. The sac contained omental tissue only. The contents were returned to the abdomen and the fascial edge was cleared out using Metzenbaum and blunt dissection and electrocautery. After clearing out the edges of the hernia defect the defect was measured at 3 cm in maximal diameter. It easily accommodated a medium-sized Ventralex mesh was placed into the abdomen. The mesh was then secured to the fascial defect using 2-0 Prolene sutures in the 4 quadrants. A final 2-0 Prolene suture was placed through the middle to close the fascia over the mesh. A 3-0 Vicryl suture was used to close the subcutaneous tissues and a running 4-0 Monocryl close the skin. It was dressed with Steri-Strips and gauze and Tegaderm. Patient tolerated the procedure well EBL was minimal there were no complications and she went in good condition to the postoperative care unit
== END 2023-01-27 16:49 | disposition home or self-care (01) ==
PROVIDERS: Family Provider Family Medicine; PCP Family Medicine; Referring Provider Surgery; Visit Provider Surgery
PROC: (CPT 49593; principal; 2023-01-27 15:45)
DX: K42.9 Umbilical hernia without obstruction or gangrene (principal)
CPT/HCPCS: 49593; J0171; J0690; J1100; J2405; J2704; J3010; J3490

== ENCOUNTER 2023-02-27 10:43 | Day surgery (SDC) | payer OTHER, SELFPAY ==
[2019-09-01 15:20] VITALS: BMI 29.9
--- NOTE | 2023-02-27 | PATH_ITS ---
[facility] Accession Number: [id number] No. of containers..01 Tissue . 01 Material submitted: . colon - SIGMOID POLYP . 01 Diagnosis: COLON, SIGMOID, POLYP BIOPSY: HYPERPLASTIC POLYP. NEGATIVE FOR DYSPLASIA. TXN 03/06/2023 1258 Local . 01 Electronically signed: . Karyn Dawkins MD, Pathologist NPI- [id number] . 01 Gross description: . SIGMOID POLYP: Received in formalin are 4 fragment(s) of saab, soft tissue measuring 0.1 x 0.1 x 0.1 cm to 0.3 x 0.3 x 0.1 cm submitted entirely in 1 cassette(s) /JADEN 03/03/2023 2218 Local . 01 Pathologist provided ICD-10: Z12.11 . 01 CPT . 473556 Specimen Comment: A courtesy copy of this report has been sent to [facility] Performed at: 01 [facility] [address] [place] [address], [place], [place] [id number] MD Urbano Nava MD Phone: [phone]
[2023-02-27 11:24] VITALS: BP 123/80; PULSE 78; RESP 16; TEMP 36.2; O2SAT 98; BMI 34.3
[2023-02-27] MEDS: LACTATED RINGERS 1,000 ML 42 ML IV (11:35)
--- NOTE | 2023-02-27 11:48 | P.HP_ITS ---
History of Present Illness History of Present Illness Date Patient Seen: 02/27/23 Time Patient Seen: 11:48 Chief complaint: Dx Colonoscopy Narrative: She also complains of chronic constipation and lower abdominal pain.? She also has some hemorrhoids that she states are both internal and external.? She has gained 50 lb in the last 3 years and now has an inactive job.? Her last colonoscopy was in 2017 at [facility] in [facility].? Six years ago she had 1 polyp but had never heard from them again.? She does not know if she has any family history of colon cancer since she is adopted and has no knowledge of her family. No new symptoms since I saw her in the clinic otherwise doing okay wants to proceed [facility] Medical History Acne Allergies (~1974) Anxiety associated with depression (~2020) Chronic back pain (~2018) Chronic constipation Depression (~1997) Diverticulosis Glaucoma (~2010) Heartburn Hemorrhoid (~1987) History of recurrent ear infection (~2019) Migraines Numbness and tingling Obesity JULIANNE on CPAP Precancerous lesion Sciatica Seasonal allergies Shoulder pain (~2019) Sleep apnea (~2007) Spinal stenosis Tobacco abuse Surgical History Anesthesia Ganglion cyst (~2020) History of back surgery (08/10/18) History of section (~1987) History of colonoscopy Hx of tubal ligation (~1987) Trigger finger (~2020) Social History household members: spouse and family Smoking Status: Current every day smoker alcohol intake: current Meds Home Medications and Allergies Home Medications Medication Instructions Recorded Confirmed Type timolol 0.5 % eye drops drp EYE-RIGHT 06/17/21 02/10/23 History escitalopram oxalate 10 mg tablet 10 mg PO DAILY #90 tabs 01/06/23 02/27/23 Rx docusate sodium 100 mg capsule 100 mg PO BID #30 caps 01/27/23 02/10/23 Rx (Colace) ibuprofen 600 mg tablet 600 mg PO Q6H #30 tabs 01/27/23 02/27/23 Rx Allergies Allergy/AdvReac Type Severity Reaction Status Date / Time amoxicillin [From Augmentin] Allergy Severe Facial Verified 02/27/23 11:23 blisters avocado Allergy Severe Blister Verified 02/27/23 11:23 clavulanic acid Allergy Severe Facial Verified 02/27/23 11:23 [From Augmentin] blisters adhesive tape AdvReac It's rips Verified 02/27/23 11:23 off my skin Paper tape ok Exam Vital Signs (past 8 hours): - 02/27/23 11:24 Temperature 97.1 F L Pulse Rate 78 Respiratory Rate 16 Blood Pressure 123/80 Pulse Oximetry 98 Oxygen Delivery Method Nasal Cannula Oxygen Delivery Method Nasal Cannula Const General: cooperative, healthy appearing and comfortable [facility] Head: normal to inspection Eyes General: appearance normal, both eyes and all related structures Resp Effort & Inspection: normal respiratory effort and able to speak in complete sentences GI Palpation: soft and No tender Assessment & Plan Assessment and plan (1) History of colon polyps: Status: Acute (2) Colon cancer screening: Status: Acute (3) Constipation: Status: Acute Assessment & Plan narrative: Presents today for screening colonoscopy I discussed the risks benefits and alternatives including but not limited to perforation of the colon and an incomplete exam she fully understands these risks and would like to proceed.
--- NOTE | 2023-02-27 13:05 | P.OP.COLON_ITS ---
Operative Date/Time/Diagnoses Date of procedure: 02/27/23 Time of procedure: 13:05 Pre-op diagnosis: Screening for colon cancer, history of polyps, chronic constipation Post-op diagnosis: same Procedure & Clinicians Study performed: Colonoscopy and biopsy Same procedure as scheduled: Yes Indications: Chronic constipation, colon cancer screening, history of polyps Procedure Notes Procedure in detail: Patient was taken to the endoscopy suite and placed in a left lateral decubitus position. A time-out was performed. With the help of anesthesiologist conscious sedation was induced and monitored throughout the case. A digital rectal exam was performed there was 1 external hemorrhoid seen and there were no masses or strictures. The colonoscope was introduced into the anal canal and advanced through to the cecum. There were multiple large impressive diverticula throughout the sigmoid colon and even multiple diverticula in the transverse as well. Photographs were obtained. With some abdominal pressure the cecum was reached and a photograph of the appendiceal orifice was obtained. The bowel prep was good [place] bowel prep score of 2. The scope was then withdrawn for a total of 15 minutes, 1 small polyp was biopsied in the sigmoid colon with forceps and sent for pathology. The scope was withdrawn through the anal canal without retroflexion and it appeared there were some prominent internal hemorrhoidal piles. The patient began to have some desaturations, concern for aspiration and small tongue laceration from her teeth, because of sleep apnea and required an oral airway and bag masking. She recovered promptly from this and was taken to the postoperative care unit in good condition. Findings: divertiulosis, internal hemorrhoids and polyp(s) Specimen(s): other (Sigmoid polyps small) Post-procedure Plan for aftercare: 5-10 year follow-up depending on pathology of the polyp. I strongly recommend a fiber supplementation especially in the setting of chronic constipation and these large diverticula it does indicate that the pressure within her colon chronically runs at a high level which would be greatly benefitted with a daily or twice daily fiber supplement.
[2023-02-27 13:10] VITALS: BP 110/66; PULSE 81; RESP 18; TEMP 36.4; O2SAT 100
[2023-02-27 13:15] VITALS: BP 108/66; PULSE 78; RESP 20; O2SAT 99
[2023-02-27 13:20] VITALS: BP 127/68; PULSE 80; RESP 12; O2SAT 99
[2023-02-27 13:36] VITALS: BP 118/64; PULSE 74; RESP 16; O2SAT 97
== END 2023-02-27 13:35 | disposition home or self-care (01) ==
PROVIDERS: Family Provider Family Medicine; PCP Family Medicine; Referring Provider Surgery; Visit Provider Surgery
PROC: 0DJD8ZZ Inspection of Lower Intestinal Tract, Via Natural or Artificial Opening Endoscopic (ICD-10-PCS; CPT 45378; principal; 2023-02-27 12:15)
DX: Z12.11 Encounter for screening for malignant neoplasm of colon (principal); K57.30 Diverticulosis of large intestine without perforation or abscess without bleeding; K64.8 Other hemorrhoids
CPT/HCPCS: 45380

== ENCOUNTER → 2023-04-17 06:58 | Outpatient (CLI) | payer OTHER, SELFPAY ==
[2019-09-01 15:20] VITALS: BMI 29.9
[2023-04-17 07:55] LABS: Add Manual Diff / Slide Review NO; Basophils Absolute Auto 0 /uL (0-100); Basophils Percent Auto 0.7 % (0-2); Eosinophils Absolute Auto 100 /uL (0-450); Eosinophils Percent Auto 2.3 % (2-4); Hematocrit 38.5 % (36-46); Hemoglobin 13.5 g/dL (12.0-16.0); Lymphocytes Absolute Auto 1500 /uL (1100-4500); Lymphocytes Percent Auto 28.1 % (25-40); Mean Corpuscular Volume 91.4 fL (80-100); Monocytes Absolute Auto 300 /uL (0-900); Monocytes Percent Auto 6.3 % (3-14); Neutrophils Absolute Auto 3400 /uL (1500-7000); Neutrophils Percent Auto 62.6 % (50-75); Platelet Count 295 X10^3/uL (150-400); Red Blood Cell Count 4.21 X10^6/uL (4.0-5.2); White Blood Cell Count 5.4 X10^3/uL (4.5-11.0)
[2023-04-17 08:06] LABS: Alanine Aminotransferase 23 IU/L (<35); Albumin 4.1 g/dL (3.5-5.0); Albumin Globulin Ratio 1.8 (1.0-2.8); Alkaline Phosphatase 77 U/L (38-126); Aspartate Aminotransferase 20 IU/L (14-36); BUN Creatinine Ratio 16.5 (6-22); Bilirubin Total 0.7 mg/dL (0.2-1.3); Blood Urea Nitrogen 14 mg/dL (7-17); Calcium 9.6 mg/dL (8.4-10.2); Carbon Dioxide 25 mmol/L (22-32); Chloride 98 mmol/L (98-107); Cholesterol 231 mg/dL (140-199); Estimated Glomerular Filt Rate > 60 mL/min (>60); Globulin 2.3 g/dL (1.7-4.1); Glucose 397 mg/dL (80-110); HDL Cholesterol 32 mg/dL (40-60); HEMOLYSIS < 15 (0-50); Potassium 4.7 mmol/L (3.4-5.1); Sodium 133 mmol/L (137-145); Total Protein 6.4 g/dL (6.3-8.2)
[2023-04-17 08:15] LABS: Triglycerides 845 mg/dL (35-150)
[2023-04-17 08:35] LABS: TSH w/ Reflex to FT4 1.58 uIU/mL (0.47-4.68)
[2023-04-17 08:52] LABS: HIV 1 & 2 Ab/Ag 4th Gen Combo NEGATIVE (NEGATIVE); Hep C Virus Ab w/Reflex Quant NEGATIVE s/c (NEGATIVE)
[2023-04-17 09:09] LABS: Hemoglobin A1C% w Est Avg Glu > 14.0 % (4.0-6.0)
[2023-04-17 10:42] LABS: Creatinine Urine Random 137.5 mg/dL
[2023-04-17 10:46] LABS: Microalbumi Creatinin Ratio Ur 35.6 ug/mg CR (<30); Microalbumin Urine Random 4.9 mg/dL (0-1.6)
== END ==
PROVIDERS: Family Provider Family Medicine; PCP Family Medicine; Referring Provider Family Medicine; Visit Provider Family Medicine
DX: E11.65 Type 2 diabetes mellitus with hyperglycemia (principal); E78.2 Mixed hyperlipidemia; Z11.59 Encounter for screening for other viral diseases; Z11.4 Encounter for screening for human immunodeficiency virus [HIV]
CPT/HCPCS: 36415; 80053; 80061; 82043; 82570; 83036; 84443; 85025; 86803; 87389

== ENCOUNTER → 2023-12-04 12:09 | Outpatient (CLI) | payer OTHER, SELFPAY ==
[2019-09-01 15:20] VITALS: BMI 29.9
--- NOTE | 2023-12-04 12:11 | DI.MG.S_ITS ---
BILATERAL DIGITAL SCREENING MAMMOGRAM 3D/2D WITH CAD: 12/04/2023 CLINICAL: Routine screening. Comparison is made to exams dated: 06/30/2022 mammogram, 08/05/2021 mammogram - [facility], and 07/16/2018 mammogram - [facility]. Both breasts are heterogeneously dense, which may obscure small masses (category c / 51-75% glandular tissue). Current study was also evaluated with a Computer Aided Detection (CAD) system. No significant masses, calcifications, or other findings are seen in either breast. There has been no significant interval change. IMPRESSION: NEGATIVE There is no mammographic evidence of malignancy. A 1 year screening mammogram is recommended. Based on the Tyrer Cuzick model (a risk assessment model) the patient's lifetime risk is 9.3% and her 10 year risk is 4.2%. According to the ACR, ACS, and NCCN guidelines, an annual breast MRI exam along with mammogram is recommended if the patient's lifetime risk is 20% or greater. This exam was interpreted at Station ID: [id number]. NOTE: For mammograms, a report in lay terms will be sent to the patient. Approximately 15% of breast malignancies will not be visualized mammographically. In the management of a palpable breast mass, a negative mammogram must not discourage biopsy of a clinically suspicious lesion. Electronically Signed By: Sherrell [email or web address]:12/04/2023 15:56:06 letter sent: Normal Exam ACR BI-RADS Category 1: Negative 3341F
== END ==
PROVIDERS: Family Provider Family Medicine; PCP Family Medicine; Referring Provider Family Medicine; Visit Provider Family Medicine
DX: Z12.31 Encounter for screening mammogram for malignant neoplasm of breast (principal); R92.333 Mammographic heterogeneous density, bilateral breasts
CPT/HCPCS: 77063; 77067

== ENCOUNTER → 2024-01-12 06:57 | Outpatient (CLI) | payer OTHER, SELFPAY ==
[2019-09-01 15:20] VITALS: BMI 29.9
[2024-01-12 08:37] LABS: Hemoglobin A1C% w Est Avg Glu 5.9 % (4.0-6.0)
== END ==
LOC: LAB 06:59
PROVIDERS: Family Provider Family Medicine; PCP Family Medicine; Referring Provider Family Medicine; Visit Provider Family Medicine
DX: E11.29 Type 2 diabetes mellitus with other diabetic kidney complication (principal); R80.9 Proteinuria, unspecified; E11.65 Type 2 diabetes mellitus with hyperglycemia
CPT/HCPCS: 36415; 83036

== ENCOUNTER → 2024-07-30 08:11 | Outpatient (CLI) | payer OTHER, SELFPAY ==
[2019-09-01 15:20] VITALS: BMI 29.9
[2024-07-30 09:39] LABS: Alanine Aminotransferase 43 IU/L (<35); Albumin 4.4 g/dL (3.5-5.0); Albumin Globulin Ratio 1.9 (1.0-2.8); Alkaline Phosphatase 66 U/L (38-126); Aspartate Aminotransferase 31 IU/L (14-36); BUN Creatinine Ratio 19.8 (6-22); Bilirubin Total 0.5 mg/dL (0.2-1.3); Blood Urea Nitrogen 18 mg/dL (7-17); Calcium 10.1 mg/dL (8.4-10.2); Carbon Dioxide 25 mmol/L (22-32); Chloride 106 mmol/L (98-107); Cholesterol 122 mg/dL (140-199); Estimated Glomerular Filt Rate > 60 mL/min (>60); Globulin 2.3 g/dL (1.7-4.1); Glucose 123 mg/dL (80-110); HDL Cholesterol 48 mg/dL (40-60); HEMOLYSIS < 15 (0-50); LDL Cholesterol Calculated 51 mg/dL (<100); Potassium 4.9 mmol/L (3.4-5.1); Sodium 140 mmol/L (137-145); Total Protein 6.7 g/dL (6.3-8.2); Triglycerides 113 mg/dL (35-150)
== END ==
LOC: LAB 08:13
PROVIDERS: Family Provider Family Medicine; PCP Family Medicine; Referring Provider Family Medicine; Visit Provider Family Medicine
DX: E11.29 Type 2 diabetes mellitus with other diabetic kidney complication (principal); R80.9 Proteinuria, unspecified; E78.2 Mixed hyperlipidemia; Z72.0 Tobacco use; F41.8 Other specified anxiety disorders
CPT/HCPCS: 36415; 80053; 80061; 83036

== ENCOUNTER → 2024-08-23 08:20 | Outpatient (CLI) | payer OTHER, SELFPAY ==
[2019-09-01 15:20] VITALS: BMI 29.9
--- NOTE | 2024-08-23 08:22 | DI.CT.S_ITS ---
PROCEDURE: CT LUNG LOW DOSE SCREENING INDICATIONS: screening TECHNIQUE: Noncontrast 2.0-2.5 mm thick sections acquired from the pulmonary apices to the posterior costophrenic angles. 7 mm thick axial MIP, and 5 mm coronal and sagittal reformats were then acquired. For radiation dose reduction, the following was used: automated exposure control, adjustment of mA and/or kV according to patient size. COMPARISON: None. FINDINGS: Image quality: Diagnostic. Lower Neck: No enlarged lymph nodes. Thyroid: No thyroid nodules which require sonographic follow up, per consensus guidelines. Axillae: No enlarged lymph nodes. Chest Wall: Unremarkable. Bones: Visualized osseous structures appear intact without acute fracture or focal destructive lesion. No acute compression fractures of the imaged spine. Lungs and Pleura: No pneumothorax or pleural effusions. No consolidation or suspicious nodules. Focal atelectasis along the posterior margin of the medial right lower lobe, adjacent to the spine (132/series 3). Visualized airways are clear. Heart: Heart size is normal. No pericardial effusion. Coronary atherosclerotic vascular calcifications are noted. Thoracic Vessels: The aorta and pulmonary arteries demonstrate normal size. Mediastinum and Sonya: No enlarged lymph nodes. Esophagus: No wall thickening. No hiatal hernia. Upper Abdomen: Visualized upper abdomen solid organs and bowel loops appear normal. IMPRESSION: No suspicious pulmonary nodules. LUNG-RADS 1; continued annual screening, if eligible. Clinically Significant Non-pulmonary Findings: Atherosclerosis. Dictated by: Zaki Hahn M.D. on 08/23/2024 at 19:40 Approved by: Zaki Hahn M.D. on 08/23/2024 at 19:43
== END ==
PROVIDERS: Family Provider Family Medicine; PCP Family Medicine; Referring Provider Family Medicine; Visit Provider Family Medicine
DX: F17.210 Nicotine dependence, cigarettes, uncomplicated (principal); R06.02 Shortness of breath; R94.2 Abnormal results of pulmonary function studies; I25.10 Atherosclerotic heart disease of native coronary artery without angina pectoris
CPT/HCPCS: 71271; 94060; 94729

== ENCOUNTER → 2024-08-23 10:09 | Outpatient (CLI) | payer OTHER, SELFPAY ==
[2019-09-01 15:20] VITALS: BMI 29.9
== END ==
PROVIDERS: Family Provider Family Medicine; PCP Family Medicine; Referring Provider Family Medicine; Visit Provider Family Medicine
DX: R06.02 Shortness of breath (principal); Z72.0 Tobacco use; R94.2 Abnormal results of pulmonary function studies
CPT/HCPCS: 94060; 94729

== ENCOUNTER → 2025-06-13 07:46 | Outpatient (CLI) | payer OTHER, SELFPAY ==
[2019-09-01 15:20] VITALS: BMI 29.9
[2025-06-13 08:15] LABS: Add Manual Diff / Slide Review NO; Hematocrit 37.7 % (36-46); Hemoglobin 12.8 g/dL (12.0-16.0); Lymphocytes Absolute Auto 2100 /uL (1100-4500); Mean Corpuscular HGB Conc 33.8 % (30-36); Mean Corpuscular Hemoglobin 31.0 PG (26-34); Mean Corpuscular Volume 91.6 fL (80-100); Platelet Count 300 X10^3/uL (150-400)
[2025-06-13 08:28] LABS: Hemoglobin A1C% w Est Avg Glu 7.5 % (4.0-6.0)
[2025-06-13 08:38] LABS: Blood Urea Nitrogen 14 mg/dL (7-17); Calcium 9.3 mg/dL (8.4-10.2); Carbon Dioxide 24 mmol/L (22-32); Chloride 106 mmol/L (98-107); Estimated Glomerular Filt Rate > 60 mL/min (>60); Glucose 199 mg/dL (70-99); HEMOLYSIS < 15 (0-50); Sodium 140 mmol/L (137-145)
[2025-06-13 08:39] LABS: Potassium 4.3 mmol/L (3.4-5.1)
== END ==
PROVIDERS: Family Provider Family Medicine; PCP Family Medicine; Referring Provider Family Medicine; Visit Provider Family Medicine
DX: E11.65 Type 2 diabetes mellitus with hyperglycemia (principal); Z72.0 Tobacco use; R53.82 Chronic fatigue, unspecified; G47.30 Sleep apnea, unspecified; E11.29 Type 2 diabetes mellitus with other diabetic kidney complication; R80.9 Proteinuria, unspecified
CPT/HCPCS: 36415; 80048; 83036; 85025